=== PATIENT | male | born 1995 | race Caucasian/White ===

== ENCOUNTER 2017-08-20 19:30 | Emergency (ER) | payer OTHER ==
[2017-08-20 19:34] VITALS: TEMP 97.5
[2017-08-20] MEDS ORDERED: ONDANSETRON 4 MG/2 ML VIAL IVP ONE (19:54)
[2017-08-20] MEDS ORDERED: NS 1,000 ML IV ONE ×2 (19:54→20:57)
--- NOTE | 2017-08-20 19:56 | EDPHY ---
H & P Time Seen by Provider: 08/20/17 19:42 HPI/ROS: CHIEF COMPLAINT: Vomiting, diarrhea HISTORY OF PRESENT ILLNESS: 21-year-old male presents to the emergency department with his father with multiple episodes of vomiting and diarrhea that began this afternoon. The patient woke up this morning and was feeling a bit nauseous and then had multiple episodes of diarrhea followed by vomiting. He then developed some abdominal discomfort. He still feels very nauseous and vomited just 20 min prior to arrival. No fevers or chills. No back pain. No urinary symptoms. No known contaminated food or water. No known ill contacts. He is visiting from [place]. REVIEW OF SYSTEMS: Constitutional: No fever, no chills. Eyes: No double or blurry vision. ENT: No sore throat. Respiratory: No cough, no shortness of breath. Cardiac: No chest pain. Gastrointestinal: Vomiting, diarrhea as above. Abdominal pain. Genitourinary: No dysuria. Musculoskeletal: No neck or back pain. Skin: No rashes. Neurological: No headache. Past Medical/Surgical History: Tonsillectomy, varicose vein removal Social History: Single, student at [employer] Smoking Status: Never smoked Physical Exam: General Appearance: Alert, no distress. Afebrile. Nontoxic appearing. Eyes: Pupils equal and round. Extraocular motions are all intact. ENT: Mouth: Mucous membranes moist. Respiratory: No wheezing, rhonchi, or rales, lungs are clear to auscultation. Cardiovascular: Regular rate and rhythm. Gastrointestinal: Abdomen is soft. He has reproducible tenderness with palpation in the epigastric area. There is no rebound, guarding or masses noted. No CVA tenderness bilaterally. Neurological: Alert and oriented x 3, cranial nerves II through XII grossly intact Skin: Warm and dry, no rashes. Musculoskeletal: Nontender to palpate along the cervical, thoracic or lumbar spine. Neck is supple. Extremities: Full range of motion and no peripheral edema. Psychiatric: Patient is oriented X 3, there is no agitation. Constitutional: Initial Vital Signs Temperature (C) 36.4 C 08/20/17 19:32 Heart Rate 85 08/20/17 19:32 Respiratory Rate 16 08/20/17 19:32 Blood Pressure 124/68 H 08/20/17 19:32 O2 Sat (%) 97 08/20/17 19:32 O2 Delivery Mode Room Air Allergies/Adverse Reactions: No Known Allergies Allergy (Unverified 08/20/17 19:32) Home Medications: Medication Instructions Recorded Ondansetron Odt [Zofran Odt] 4 mg PO Q4PRN #8 tab 08/20/17 Medical Decision Making ED Course/Re-evaluation: 21-year-old male presents emergency department with multiple episodes of vomiting and diarrhea. Patient had some epigastric discomfort as well. Patient was given IV Protonix, IV Zofran IV normal saline x2 L. He was feeling much better. He is tolerating p.o. fluids. I do not think this patient has acute appendicitis. I do not think imaging studies are indicated. This was discussed with the patient and father at bedside who verbalized understanding and agreed. Patient will be discharged home. He was given Zofran as needed for recurring nausea. He was instructed to return however if he developed recurring vomiting , fever, worsening abdominal pain or any other concerns. Patient was comfortable with this plan. Differential Diagnosis: Including but not limited to gastroenteritis, gastritis, dehydration, electrolyte abnormality, peptic ulcer disease, GERD, acute appendicitis - Data Points Laboratory Results: Laboratory Results 08/20/17 20:05 08/20/17 20:05 08/20/17 08/20/17 20:05 20:05 WBC 15.29 10^3/uL H 10^3/uL (3.80-9.50) RBC 4.92 10^6/uL 10^6/uL (4.40-6.38) Hgb 15.6 g/dL g/dL (13.7-17.5) Hct 43.6 % % (40.0-51.0) MCV 88.6 fL fL (81.5-99.8) MCH 31.7 pg pg (27.9-34.1) MCHC 35.8 g/dL g/dL (32.4-36.7) RDW 11.5 % % (11.5-15.2) Plt Count 239 10^3/uL 10^3/uL (150-400) MPV 9.8 fL fL (8.7-11.7) Neut % (Auto) 93.5 % H % (39.3-74.2) Lymph % (Auto) 2.2 % L % (15.0-45.0) [place] % (Auto) 3.5 % L % (4.5-13.0) Eos % (Auto) 0.2 % L % (0.6-7.6) Baso % (Auto) 0.2 % L % (0.3-1.7) Nucleat RBC Rel Count 0.0 % % (0.0-0.2) Absolute Neuts (auto) 14.30 10^3/uL H 10^3/uL (1.70-6.50) Absolute Lymphs (auto) 0.34 10^3/uL L 10^3/uL (1.00-3.00) Absolute Monos (auto) 0.53 10^3/uL 10^3/uL (0.30-0.80) Absolute Eos (auto) 0.03 10^3/uL 10^3/uL (0.03-0.40) Absolute Basos (auto) 0.03 10^3/uL 10^3/uL (0.02-0.10) Absolute Nucleated RBC 0.00 10^3/uL 10^3/uL (0-0.01) Immature Gran % 0.4 % % (0.0-1.1) Immature Gran # 0.06 10^3/uL 10^3/uL (0.00-0.10) Sodium 142 mEq/L mEq/L (134-144) Potassium 4.8 mEq/L mEq/L (3.5-5.2) Chloride 102 mEq/L mEq/L (97-110) Carbon Dioxide 24 mEq/l mEq/l (22-31) Anion Gap 16 mEq/L mEq/L (8-16) BUN 20 mg/dL mg/dL (7-23) Creatinine 1.1 mg/dL mg/dL (0.7-1.3) Estimated GFR > 60 Glucose 120 mg/dL H mg/dL (70-100) Calcium 10.0 mg/dL mg/dL (8.5-10.4) Total Bilirubin 0.8 mg/dL mg/dL (0.1-1.4) Conjugated Bilirubin 0.3 mg/dL mg/dL (0.0-0.5) Unconjugated Bilirubin 0.5 mg/dL mg/dL (0.0-1.1) AST 39 IU/L IU/L (17-59) ALT 34 IU/L IU/L (21-72) Alkaline Phosphatase 84 IU/L IU/L (38-126) Total Protein 7.9 g/dL g/dL (6.3-8.2) Albumin 5.1 g/dL H g/dL (3.5-5.0) Lipase 78 IU/L IU/L (23-300) Medications Given: Discontinued Medications Sodium Chloride (Ns) 1,000 mls @ 0 mls/hr IV ONCE ONE PRN Reason: Wide Open Stop: 08/20/17 19:55 Last Admin: 08/20/17 20:19 Dose: 1,000 mls Sodium Chloride (Ns) 1,000 mls @ 0 mls/hr IV ONCE ONE PRN Reason: Wide Open Stop: 08/20/17 20:58 Last Admin: 08/20/17 20:58 Dose: 1,000 mls Ondansetron HCl (Zofran) 4 mg IVP EDNOW ONE Stop: 08/20/17 19:55 Last Admin: 08/20/17 20:19 Dose: 4 mg Ondansetron HCl (Zofran Odt 4 Mg Prepack#2) 1 btl TAKEHOME EDNOW ONE Stop: 08/20/17 22:09 Last Admin: 08/20/17 22:19 Dose: 1 btl Pantoprazole Sodium (Protonix) 40 mg IVP EDNOW ONE Stop: 08/20/17 21:39 Last Admin: 08/20/17 21:45 Dose: 40 mg Departure - Departure Disposition: Home, Routine, Self-Care Clinical Impression: Gastroenteritis Condition: Good Instructions: Gastroenteritis (ED) Additional Instructions: Clear liquids and then slowly advance diet as tolerated. Zofran as needed for symptoms of nausea as prescribed. Abdominal Pain: Return to the Emergency Department immediately for increasing pain, fever, vomiting, or if not completely better in 8-12 hours. Referrals: CLAU,UNKNOWN [Other] - As per Instructions Prescriptions: Ondansetron Odt [Zofran Odt] 4 mg PO Q4PRN #8 tab
[2017-08-20 20:09] LABS: PLATELET COUNT 239 10^3/uL (150-400)
[2017-08-20] MEDS ORDERED: PANTOPRAZOLE SODIUM 40 MG VIAL IVP ONE (21:38)
[2017-08-20 21:56] VITALS: O2SAT 99
[2017-08-20] MEDS ORDERED: ONDANSETRON 4MG PREPACK#2 BTL TAKEHOME ONE (22:08)
[2017-08-20 22:19] VITALS: PULSE 71; RESP 17
[2017-08-20 22:21] VITALS: BP 120/60
== END 2017-08-20 22:25 | disposition home or self-care (01) ==
DX: K52.9 Noninfective gastroenteritis and colitis, unspecified (principal)
CPT/HCPCS: 96374; J2405